=== PATIENT | male | born 1990 | race Caucasian/White ===

== ENCOUNTER 2018-10-16 09:52 | Emergency (ER) | payer OTHER, SELFPAY ==
[2018-10-16 09:59] VITALS: BP 125/82; PULSE 82; RESP 13; TEMP 37; O2SAT 99
--- NOTE | 2018-10-16 10:12 | DI.RAD.S_ITS ---
PROCEDURE: XR KUB INDICATIONS: RLQ pain, colicky, crampy, gas/constipation TECHNIQUE: One view of the abdomen acquired. COMPARISON: None. FINDINGS: Surgical changes and devices: None. Bowel: Bowel gas pattern is normal. Soft tissues: No suspicious abdominal calcifications. Visualized solid organ contours appear normal in size. Bones: No suspicious bony lesions. There may be early degenerative changes of the hips. IMPRESSION: 1. No bowel obstruction. 2. No definite renal calculi. Dictated by: Epifanio Romero M.D. on 10/16/2018 at 9:29 Approved by: Epifanio Romero M.D. on 10/16/2018 at 9:30
--- NOTE | 2018-10-16 10:12 | DI.US.S_ITS ---
PROCEDURE: US ABDOMEN LIMITED INDICATIONS: RIGHT LOWER QUADRANT PAIN EVALUATE APPENDIX TECHNIQUE: Real-time focused scanning was performed of the abdomen with attention to the appendix, with image documentation. COMPARISON: None. FINDINGS: Appendix visualization: Not visualized Appendix measurements: Unable to assess Associated findings: Echogenic fat: Unable to assess Appendiceal compressibility: Unable to assess Appendicoliths: Unable to assess Nearby free fluid: Absent Lymphadenopathy: Absent Tenderness on exam: Present No loculated fluid collections are identified. IMPRESSION: The appendix is not definitely seen. No convincing secondary signs of appendicitis are evident. If there is high clinical concern for appendicitis, please consider contrast enhanced CT of the abdomen/pelvis for further evaluation. Dictated by: Epifanio Romero M.D. on 10/16/2018 at 10:25 Approved by: pEifanio Romero M.D. on 10/16/2018 at 10:26
--- NOTE | 2018-10-16 11:13 | ED.ABDPAIN ---
HPI - Abdominal Pain General Chief Complaint: Abdominal Pain Stated Complaint: Stomach pain Time Seen by Provider: 10/16/18 09:55 Source: patient and family Mode of arrival: ambulatory Limitations: no limitations History of Present Illness HPI narrative: He 28-year-old male nonsmoker with history of hypertrophic obstructive cardiomyopathy and relatively recent defibrillator placement presents with his father for evaluation of episodic right lower quadrant pain. He denies any procedures in the groin during his hospitalization. He denies any provocation, palliation or radiation of the pain. He states when it is present it is sharp and stabbing but does not last very long and there is no pattern to it. He denies any dysuria, frequency, urgency or hematuria. He denies any constipation, diarrhea. He has had no fever chills nor nausea or vomiting. He denies testicular or scrotal pain or swelling. He denies any history of the same. He is not currently having pain MD complaint: abdominal pain Onset (ago): week(s) Pain Consistency: intermittent and now resolved Location: RLQ Severity: mild Quality: stabbing Radiation: none Migration to: no migration Relieving factors: nothing Exacerbating factors: nothing Associated symptoms: denies other symptoms Related Data Home Medications Medication Instructions Recorded Confirmed verapamil 180 mg PO QAM 10/16/18 10/16/18 Allergies Allergy/AdvReac Type Severity Reaction Status Date / Time morphine Allergy Hives Verified 10/16/18 10:01 Review of Systems Constitutional Denies chills, Denies fever(s), Denies lethargy and Denies weakness Eyes Denies change in vision, Denies eye discharge, Denies irritation and Denies loss of vision ENT Ears, Nose, Mouth, and Throat: Denies change in voice, Denies neck pain and Denies sore throat Cardiovascular Denies chest pain, Denies irregular heart rhythm, Denies lightheadedness, Denies palpitations, Denies dyspnea, Denies dyspnea on exertion and Denies orthopnea Respiratory Denies cough, Denies dyspnea, Denies dyspnea on exertion and Denies wheezing Gastrointestinal Gastrointestinal: Reports abdominal pain, Denies change in bowel habits, Denies diarrhea, Denies nausea and Denies vomiting Genitourinary Denies hematuria, Denies flank pain, Denies urinary incontinence and Denies urinary urgency Musculoskeletal Denies neck pain Integumentary/Breasts Denies pruritus, Denies erythema, Denies rash and Denies wounds Neurologic Denies confusion, Denies loss of vision and Denies weakness Psychiatric Denies anxiety, Denies confusion, Denies depression, Denies homicidal ideation and Denies suicidal ideation Endocrine Denies palpitations Hematologic/Lymphatic Denies easy bruising Allergic/Immunologic Denies wheezing FOR[facility]LY [facility] Medical History (Updated 10/16/18 @ 11:15 by Nato Xie DO) HOCM (hypertrophic obstructive cardiomyopathy) (Acute) Surgical History (Updated 10/16/18 @ 11:16 by Nato Xie DO) AICD (automatic cardioverter/defibrillator) present (Acute) Social History Smoking Status: Never smoker Social History Smoking Status: Never smoker Exam Narrative Exam Narrative: GENERAL: [28] year old patient appears stated age. Well-nourished, well-developed patient, in mild distress. HEAD: Atraumatic. Normocephalic. EYES: Pupils equal round and reactive. Extraocular motions intact. No scleral icterus. No injection or drainage. ENT: Nose without bleeding, purulent drainage. Throat without erythema, tonsillar hypertrophy or exudate. Airway patent. NECK: Trachea midline. Non tender CARDIOVASCULAR: Regular rate and rhythm without murmurs, gallops, or rubs. RESPIRATORY: Clear to auscultation. Breath sounds equal bilaterally. No wheezes, rales, or rhonchi. GASTROINTESTINAL: Abdomen soft, non-tender, nondistended. : examined while standing, no inguinal pain or swelling. No testicular pain or swelling EXTREMITIES: No edema or joint tenderness. BACK: Nontender without deformity or crepitance. No flank tenderness. NEURO: AOx3. SKIN: No rash or erythema of visible areas Initial Vital Signs Initial Vital Signs: Vital Signs Temperature 98.6 F 10/16/18 09:59 Pulse Rate 82 10/16/18 09:59 Respiratory Rate 13 10/16/18 09:59 Blood Pressure 125/82 10/16/18 09:59 Pulse Oximetry 99 10/16/18 09:59 Course Orders Ordered: ED Orders 10/16/18 10:12 US abdomen limited Stat XR KUB Stat Vital Signs - 8 hr 10/16/18 09:59 10/16/18 11:18 Temperature 98.6 F Pulse Rate 82 72 Respiratory Rate 13 15 Blood Pressure 125/82 124/75 Pulse Oximetry 99 99 MDM - Abdominal Pain Lab Data Point of care testing: Urine Dip Bedside Urine Glucose Negative Bedside Urine Bilirubin - Negative Bedside Urine Ketone - Negative Urine Specific [place] 1.020 Bedside Urine Occult Blood - Negative Bedside Urine pH 6.0 Bedside Urine Protein - Negative Bedside Urine Urobilinogen - Negative Bedside Urine Nitrite - Negative Bedside Urine Leukocytes - Negative Esterase Imaging Data Abdominal x-ray: Radiologist's impression: [address] [address] XRay Report Signed Patient: Miguel Ángel Gustafson AMR#: [id number] : 1990Acct:[id number] Age/Sex: MDate of Service: 10/16/18 Loc: ED Accession Number: [id number] Procedure: XR KUB Ordering Provider: Nato Xie D.O. PROCEDURE: XR KUB INDICATIONS: RLQ pain, colicky, crampy, gas/constipation TECHNIQUE: One view of the abdomen acquired. COMPARISON: None. FINDINGS: Surgical changes and devices: None. Bowel: Bowel gas pattern is normal. Soft tissues: No suspicious abdominal calcifications. Visualized solid organ contours appear normal in size. Bones: No suspicious bony lesions. There may be early degenerative changes of the hips. IMPRESSION: 1. No bowel obstruction. 2. No definite renal calculi. Dictated by: Epifanio Romero M.D. on 10/16/2018 at 9:29 US - abdomen: Radiologist's impression: [address] [address] Ultrasound Report Signed Patient: Miguel Ángel Gustafson AMR#: [id number] : 1990Acct:[id number] Age/Sex: / MDate of Service: 10/16/18 Loc: ED Accession Number: [id number] Procedure: US abdomen limited Ordering Provider: Nato Xie D.O. PROCEDURE: US ABDOMEN LIMITED INDICATIONS: RIGHT LOWER QUADRANT PAIN EVALUATE APPENDIX TECHNIQUE: Real-time focused scanning was performed of the abdomen with attention to the appendix, with image documentation. COMPARISON: None. FINDINGS: Appendix visualization: Not visualized Appendix measurements: Unable to assess Associated findings: Echogenic fat: Unable to assess Appendiceal compressibility: Unable to assess Appendicoliths: Unable to assess Nearby free fluid: Absent Lymphadenopathy: Absent Tenderness on exam: Present No loculated fluid collections are identified. IMPRESSION: The appendix is not definitely seen. No convincing secondary signs of appendicitis are evident. If there is high clinical concern for appendicitis, please consider contrast enhanced CT of the abdomen/pelvis for further evaluation. Dictated by: Epifanio Romero M.D. on 10/16/2018 at 10:25 Approved by: Epifanio Romero M.D. on 10/16/2018 at 10:26 MDM Narrative Medical decision making narrative: Appendicitis considered, but thought unlikely given lack of other symptoms, duration of symptoms, episodic nature and normal imaging Kidney stone considered but thought less likely given lack of severe pain at any point, no hematuria, no stone on KUB or abnormal findings on US Torsion / hernia considered, but thought less likely given lack of classic findings on exam, normal ultrasound and urine. Discharge Plan Departure Patient Disposition: Home Clinical Impression: Abdominal right lower quadrant tenderness Qualifiers: Presence of rebound: absent Qualified Code(s): R10.813 - Right lower quadrant abdominal tenderness Discharge Date/Time: 10/16/18 11:19 Interventions: ED Discharge Assessment Last Done: 10/16/18 11:18 Instructions: Acute Abdominal Pain Activity Restrictions/Additional Instructions: *You have been diagnosed with [ episodic right lower quadrant pain. ] *What to do: *Follow up with your primary care provider in 2-3 days, call for an appointment. Let them know you were seen in the Emergency Department and that we ask that you be seen in follow up *Return to ER if you should have any new, worsening or concerning symptoms, such as [ fever over 101F, vomiting, or other bothersome symptoms] Prescriptions: No Action verapamil 180 mg Tablet Extended Release 180 mg PO QAM RF: 0
[2018-10-16 11:18] VITALS: BP 124/75; PULSE 72; RESP 15; O2SAT 99
--- NOTE | 2018-10-16 11:18 | ED_ITS ---
HPI - Abdominal Pain General Chief Complaint: Abdominal Pain Stated Complaint: Stomach pain Time Seen by Provider: 10/16/18 09:55 Source: patient and family Mode of arrival: ambulatory Limitations: no limitations History of Present Illness HPI narrative: He 28-year-old male nonsmoker with history of hypertrophic obstructive cardiomyopathy and relatively recent defibrillator placement presents with his father for evaluation of episodic right lower quadrant pain. He denies any procedures in the groin during his hospitalization. He denies any provocation, palliation or radiation of the pain. He states when it is present it is sharp and stabbing but does not last very long and there is no pattern to it. He denies any dysuria, frequency, urgency or hematuria. He denies any constipation, diarrhea. He has had no fever chills nor nausea or vomiting. He denies testicular or scrotal pain or swelling. He denies any history of the same. He is not currently having pain MD complaint: abdominal pain Onset (ago): week(s) Pain Consistency: intermittent and now resolved Location: RLQ Severity: mild Quality: stabbing Radiation: none Migration to: no migration Relieving factors: nothing Exacerbating factors: nothing Associated symptoms: denies other symptoms Related Data Home Medications Medication Instructions Recorded Confirmed verapamil 180 mg PO QAM 10/16/18 10/16/18 Allergies Allergy/AdvReac Type Severity Reaction Status Date / Time morphine Allergy Hives Verified 10/16/18 10:01 Review of Systems Constitutional Denies chills, Denies fever(s), Denies lethargy and Denies weakness Eyes Denies change in vision, Denies eye discharge, Denies irritation and Denies loss of vision ENT Ears, Nose, Mouth, and Throat: Denies change in voice, Denies neck pain and Denies sore throat Cardiovascular Denies chest pain, Denies irregular heart rhythm, Denies lightheadedness, Denies palpitations, Denies dyspnea, Denies dyspnea on exertion and Denies orthopnea Respiratory Denies cough, Denies dyspnea, Denies dyspnea on exertion and Denies wheezing Gastrointestinal Gastrointestinal: Reports abdominal pain, Denies change in bowel habits, Denies diarrhea, Denies nausea and Denies vomiting Genitourinary Denies hematuria, Denies flank pain, Denies urinary incontinence and Denies urinary urgency Musculoskeletal Denies neck pain Integumentary/Breasts Denies pruritus, Denies erythema, Denies rash and Denies wounds Neurologic Denies confusion, Denies loss of vision and Denies weakness Psychiatric Denies anxiety, Denies confusion, Denies depression, Denies homicidal ideation and Denies suicidal ideation Endocrine Denies palpitations Hematologic/Lymphatic Denies easy bruising Allergic/Immunologic Denies wheezing PENDING SALE TO [facility] Medical History (Updated 10/16/18 @ 11:15 by Nato Xie DO) HOCM (hypertrophic obstructive cardiomyopathy) (Acute) Surgical History (Updated 10/16/18 @ 11:16 by Nato Xie DO) AICD (automatic cardioverter/defibrillator) present (Acute) Social History Smoking Status: Never smoker Social History Smoking Status: Never smoker Exam Narrative Exam Narrative: GENERAL: [28] year old patient appears stated age. Well- nourished, well-developed patient, in mild distress. HEAD: Atraumatic. Normocephalic. EYES: Pupils equal round and reactive. Extraocular motions intact. No scleral icterus. No injection or drainage. ENT: Nose without bleeding, purulent drainage. Throat without erythema, tonsillar hypertrophy or exudate. Airway patent. NECK: Trachea midline. Non tender CARDIOVASCULAR: Regular rate and rhythm without murmurs, gallops, or rubs. RESPIRATORY: Clear to auscultation. Breath sounds equal bilaterally. No wheezes, rales, or rhonchi. GASTROINTESTINAL: Abdomen soft, non-tender, nondistended. : examined while standing, no inguinal pain or swelling. No testicular pain or swelling EXTREMITIES: No edema or joint tenderness. BACK: Nontender without deformity or crepitance. No flank tenderness. NEURO: AOx3. SKIN: No rash or erythema of visible areas Initial Vital Signs Initial Vital Signs: Vital Signs Temperature 98.6 F 10/16/18 09:59 Pulse Rate 82 10/16/18 09:59 Respiratory Rate 13 10/16/18 09:59 Blood Pressure 125/82 10/16/18 09:59 Pulse Oximetry 99 10/16/18 09:59 Course Orders Ordered: ED Orders 10/16/18 10:12 US abdomen limited Stat XR KUB Stat Vital Signs - 8 hr 10/16/18 09:59 10/16/18 11:18 Temperature 98.6 F Pulse Rate 82 72 Respiratory Rate 13 15 Blood Pressure 125/82 124/75 Pulse Oximetry 99 99 MDM - Abdominal Pain Lab Data Point of care testing: Urine Dip Bedside Urine Glucose Negative Bedside Urine Bilirubin - Negative Bedside Urine Ketone - Negative Urine Specific [place] 1.020 Bedside Urine Occult Blood - Negative Bedside Urine pH 6.0 Bedside Urine Protein - Negative Bedside Urine Urobilinogen - Negative Bedside Urine Nitrite - Negative Bedside Urine Leukocytes - Negative Esterase Imaging Data Abdominal x-ray: Radiologist's impression: [address] [address] XRay Report Signed Patient: Miguel Ángel Gustafson AMR#: [id number] : 1990Acct:[id number] Age/Sex: MDate of Service: 10/16/18 Loc: ED Accession Number: [id number] Procedure: XR KUB Ordering Provider: Nato Xie D.O. PROCEDURE: XR KUB INDICATIONS: RLQ pain, colicky, crampy, gas/constipation TECHNIQUE: One view of the abdomen acquired. COMPARISON: None. FINDINGS: Surgical changes and devices: None. Bowel: Bowel gas pattern is normal. Soft tissues: No suspicious abdominal calcifications. Visualized solid organ contours appear normal in size. Bones: No suspicious bony lesions. There may be early degenerative changes of the hips. IMPRESSION: 1. No bowel obstruction. 2. No definite renal calculi. Dictated by: Epifanio Romero M.D. on 10/16/2018 at 9:29 US - abdomen: Radiologist's impression: [address] [address] Ultrasound Report Signed Patient: Miguel Ángel Gustafson AMR#: [id number] : 1990Acct:[id number] Age/Sex: / MDate of Service: 10/16/18 Loc: ED Accession Number: [id number] Procedure: US abdomen limited Ordering Provider: Nato Xie D.O. PROCEDURE: US ABDOMEN LIMITED INDICATIONS: RIGHT LOWER QUADRANT PAIN EVALUATE APPENDIX TECHNIQUE: Real-time focused scanning was performed of the abdomen with attention to the appendix, with image documentation. COMPARISON: None. FINDINGS: Appendix visualization: Not visualized Appendix measurements: Unable to assess Associated findings: Echogenic fat: Unable to assess Appendiceal compressibility: Unable to assess Appendicoliths: Unable to assess Nearby free fluid: Absent Lymphadenopathy: Absent Tenderness on exam: Present No loculated fluid collections are identified. IMPRESSION: The appendix is not definitely seen. No convincing secondary signs of appendicitis are evident. If there is high clinical concern for appendicitis, please consider contrast enhanced CT of the abdomen/pelvis for further evaluation. Dictated by: Epifanio Romero M.D. on 10/16/2018 at 10:25 Approved by: Epifanio Romero M.D. on 10/16/2018 at 10:26 MDM Narrative Medical decision making narrative: Appendicitis considered, but thought unlikely given lack of other symptoms, duration of symptoms, episodic nature and normal imaging Kidney stone considered but thought less likely given lack of severe pain at any point, no hematuria, no stone on KUB or abnormal findings on US Torsion / hernia considered, but thought less likely given lack of classic findings on exam, normal ultrasound and urine. Discharge Plan Departure Patient Disposition: Home Clinical Impression: Abdominal right lower quadrant tenderness Qualifiers: Presence of rebound: absent Qualified Code(s): R10.813 - Right lower quadrant abdominal tenderness Discharge Date/Time: 10/16/18 11:19 Interventions: ED Discharge Assessment Last Done: 10/16/18 11:18 Instructions: Acute Abdominal Pain Activity Restrictions/Additional Instructions: *You have been diagnosed with [ episodic right lower quadrant pain. ] *What to do: *Follow up with your primary care provider in 2-3 days, call for an ap pointment. Let them know you were seen in the Emergency Department and that we ask that you be seen in follow up *Return to ER if you should have any new, worsening or concerning symptoms, such as [ fever over 101F, vomiting, or other bothersome symptoms] Prescriptions: No Action verapamil 180 mg Tablet Extended Release 180 mg PO QAM RF: 0
== END 2018-10-16 11:19 | disposition home or self-care (01) ==
PROVIDERS: Emergency Provider Emergency Medicine
DX: R10.31 Right lower quadrant pain (principal)
CPT/HCPCS: 74018; 76705; 81003; 99282; 99283